=== PATIENT | female | born 1960 | race Caucasian/White ===

== ENCOUNTER 2019-11-28 06:00 | Outpatient (RCR) | payer BC, SELFPAY | END 2019-12-26 23:59 | disposition home or self-care (01) | LOC: MPT 06:00 | PROVIDERS: Family Provider Family Medicine; PCP Family Medicine; Referring Provider Licensed Practical Nurse; Visit Provider Licensed Practical Nurse | DX: M51.17 Intervertebral disc disorders with radiculopathy, lumbosacral region (principal) | CPT/HCPCS: 97110; 97161; 97530 ==

== ENCOUNTER → 2019-12-31 14:31 | Outpatient (BNVA) | payer BC, SELFPAY | PROVIDERS: Family Provider Family Medicine; PCP Family Medicine; Referring Provider Licensed Practical Nurse; Visit Provider Anesthesiology Pain Medicine | DX: M54.16 Radiculopathy, lumbar region (principal); M51.36 Other intervertebral disc degeneration, lumbar region; M47.816 Spondylosis without myelopathy or radiculopathy, lumbar region; M48.062 Spinal stenosis, lumbar region with neurogenic claudication; M43.16 Spondylolisthesis, lumbar region; M54.12 Radiculopathy, cervical region; M47.812 Spondylosis without myelopathy or radiculopathy, cervical region; M50.00 Cervical disc disorder with myelopathy, unspecified cervical region; Z79.891 Long term (current) use of opiate analgesic | CPT/HCPCS: 99204; 99999 ==

== ENCOUNTER 2020-01-08 16:13 | Outpatient (CLI) | payer OTHER, BC, SELFPAY ==
--- NOTE | 2020-01-08 16:45 | MR_ITS ---
WS: [id number] MRI CERVICAL SPINE NONCONTRAST TECHNIQUE: Sagittal T1, T2 and STIR imaging. Axial T2, gradient, and fiesta imaging. CLINICAL INFORMATION: radiculopathy COMPARISON: None. FINDINGS: Straightening of the normal cervical lordosis. Mild disc bulging mid cervical spine. Slight anterolis thesis C3 on C4. Disc bulging worse at C4-C5, C5-C6 and C6-C7. C2-C3: Mild left and no significant right foraminal narrowing. Mild left facet arthropathy. Spinal ca nal is patent. C3-C4: Slight anterolisthesis C3 on C4. Disc osteophyte complex with slight effacement of ventral the nicole sac. Moderate to severe left and no significant right foraminal narrowing. Moderate left facet ar thropathy. C4-C5: Slight anterolisthesis C4 on C5. Disc osteophytic ridging. Mild left and no significant right foraminal narrowing. Moderate left facet arthropathy. C5-C6: Disc osteophyte complex with endplate ridging. Mild left and no significant right foraminal na rrowing. Mild to moderate facet arthropathy with a small right facet effusion likely inflammatory. Sp inal canal is patent. C6-C7: Central disc osteophyte protrusion with mild central canal stenosis. Mild left and no signific ant right foraminal narrowing. Spinal canal is patent. Mild facet arthropathy. C7-T1: Mild left and no significant right foraminal narrowing. Mild facet arthropathy. Spinal canal i s patent. Small central disc protrusion upper thoracic spine at T3-4. MR/MR cervical spin wo con* [id number] IMPRESSION: 1. Straightening of the normal cervical lordosis. Slight anterolisthesis C3 on C4. Disc bulging worse in the mid cervical spine at C4-C6. 2. Small central disc osteophyte protrusion C6-C7 with mild central canal sten osis. 3. Disc osteophyte complex C4-C5 and C5-C6 with slight effacement of ventral t hecal sac. 4. Moderate to severe left bony foraminal narrowing C3-4 with advanced left fa cet arthropathy. 5. Otherwise mild to moderate bony foraminal narrowing worse at left C4-C5, le ft C5-C6,left C6-C7, and left C7-T1. 6. Moderate to advanced facet arthropathy worse at left C3-C4, C4-C5, 7. Mild to moderate facet arthropathy right C5-C6 with small facet effusion li arnel inflammatory
== END 2020-01-08 16:14 | disposition home or self-care (01) ==
LOC: RADSHAW 16:15
PROVIDERS: Family Provider Family Medicine; PCP Family Medicine; Visit Provider Anesthesiology Pain Medicine
DX: M51.17 Intervertebral disc disorders with radiculopathy, lumbosacral region (principal); M50.223 Other cervical disc displacement at C6-C7 level; M48.02 Spinal stenosis, cervical region
CPT/HCPCS: 72141

== ENCOUNTER → 2020-02-02 11:27 | Outpatient (BNVA) | payer OTHER, BC, SELFPAY | PROVIDERS: Family Provider Family Medicine; PCP Family Medicine; Referring Provider Licensed Practical Nurse; Visit Provider Psychiatry & Neurology Neurology | DX: M54.17 Radiculopathy, lumbosacral region (principal); Z87.891 Personal history of nicotine dependence | CPT/HCPCS: 95886; 95909 ==

== ENCOUNTER 2020-02-02 13:09 | Outpatient (CLI) | payer BC, SELFPAY ==
--- NOTE | 2020-02-02 13:26 | XR_ITS ---
WS: [id number] CERVICAL SPINE FLEXION EXTENSION TECHNIQUE: 3 views of the cervical spine: lateral neutral, flexion and extension views. CLINICAL INFORMATION: neck pain COMPARISON: None. FINDINGS: Straightening of the normal cervical lordosis. Slight anterolisthesis C3 on C4 and C4 on C5 measuring 1 mm at C3-C4 and 1.8 mm at C4-C5. Grade 1 anterolisthesis C7 on T1 measuring 2.9 mm. Normal prevert ebral soft tissues. Normal C1-2 articulation. Mild flexion instability at C3-C4 and C4-C5 measuring 3 mm at C3-C4 and 3.2 mm at C4-C5. This decreas es on extension. Posterior elements are normal. No other significant findings. XR/XR cervical spine fl/ex [id number] IMPRESSION: 1. Mild flexion instability at C3-C4 and C4-C5 described above. 2. Grade 1 anterolisthesis C7 on T1 measuring 2.9 mm in neutral without signif icant instability.
== END 2020-02-02 13:10 | disposition home or self-care (01) ==
PROVIDERS: Family Provider Family Medicine; PCP Family Medicine; Visit Provider Emergency Medicine
DX: M54.2 Cervicalgia (principal); M54.12 Radiculopathy, cervical region
CPT/HCPCS: 72040

== ENCOUNTER 2020-02-02 13:51 | Outpatient (CLI) | payer BC, SELFPAY ==
--- NOTE | 2020-02-02 14:52 | XR_ITS ---
WS: [id number] LATERAL LUMBAR SPINE: 3 view. Lateral radiographs are performed in upright neutral, flexion and extension to the patient's toleranc e. HISTORY: Low back pain COMPARISON: None available. L4 anterolisthesis by 12 mm on neutral imaging. Anterolisthesis of 11 mm on flexion and 8.4 mm on ext ension. Moderate disc space narrowing at L5-S1. No fractures. XR/XR lumbar spine f/e only [id number] IMPRESSION: L4 anterolisthesis by 12 mm with mild flexion/extension instability. Moderate degenerative disc disease at L5-S1.
== END 2020-02-02 13:52 | disposition home or self-care (01) ==
LOC: RADWPI 14:00
PROVIDERS: Family Provider Family Medicine; PCP Family Medicine; Visit Provider Licensed Practical Nurse
DX: M54.5 Low back pain (principal); M51.37 Other intervertebral disc degeneration, lumbosacral region
CPT/HCPCS: 72120

== ENCOUNTER → 2020-02-11 09:34 | Outpatient (BNVA) | payer OTHER, BC, SELFPAY | PROVIDERS: Family Provider Family Medicine; PCP Family Medicine; Visit Provider Anesthesiology Pain Medicine | DX: N76.0 Acute vaginitis (principal); Z12.72 Encounter for screening for malignant neoplasm of vagina; N76.4 Abscess of vulva | CPT/HCPCS: 80053; 87070; 87077; 87086; 87186; 88175; 99214 ==

== ENCOUNTER 2020-02-25 06:00 | Outpatient (RCR) | payer OTHER, BC, SELFPAY | END 2020-02-25 23:59 | disposition home or self-care (01) | LOC: MPT 06:00 | PROVIDERS: Family Provider Family Medicine; PCP Family Medicine; Referring Provider Anesthesiology Pain Medicine; Visit Provider Anesthesiology Pain Medicine | DX: M48.062 Spinal stenosis, lumbar region with neurogenic claudication (principal); M51.36 Other intervertebral disc degeneration, lumbar region; M54.16 Radiculopathy, lumbar region | CPT/HCPCS: 97110; 97162 ==

== ENCOUNTER 2020-02-26 06:00 | Outpatient (RCR) | payer OTHER, BC, SELFPAY | END 2020-03-27 23:59 | disposition home or self-care (01) | LOC: MPT 06:00 | PROVIDERS: Family Provider Family Medicine; PCP Family Medicine; Referring Provider Anesthesiology Pain Medicine; Visit Provider Anesthesiology Pain Medicine | DX: M48.062 Spinal stenosis, lumbar region with neurogenic claudication (principal); M51.36 Other intervertebral disc degeneration, lumbar region; M54.16 Radiculopathy, lumbar region | CPT/HCPCS: 97110; 97116; 97140 ==

== ENCOUNTER → 2020-03-11 09:32 | Outpatient (BNVA) | payer OTHER, BC, SELFPAY | PROVIDERS: Family Provider Family Medicine; PCP Family Medicine; Visit Provider Anesthesiology Pain Medicine | DX: M54.16 Radiculopathy, lumbar region (principal); M48.062 Spinal stenosis, lumbar region with neurogenic claudication; M47.816 Spondylosis without myelopathy or radiculopathy, lumbar region; M51.36 Other intervertebral disc degeneration, lumbar region; M54.12 Radiculopathy, cervical region; M50.00 Cervical disc disorder with myelopathy, unspecified cervical region; M47.812 Spondylosis without myelopathy or radiculopathy, cervical region; Z79.891 Long term (current) use of opiate analgesic | CPT/HCPCS: 64483; 64484; 99213; J1040; J2001; J3490 ==

== ENCOUNTER → 2020-03-25 10:34 | Outpatient (BNVA) | payer OTHER, BC, SELFPAY | PROVIDERS: Family Provider Family Medicine; PCP Family Medicine; Visit Provider Anesthesiology Pain Medicine | DX: M54.41 Lumbago with sciatica, right side (principal); M54.42 Lumbago with sciatica, left side; M54.16 Radiculopathy, lumbar region; M48.062 Spinal stenosis, lumbar region with neurogenic claudication; M47.816 Spondylosis without myelopathy or radiculopathy, lumbar region; M51.36 Other intervertebral disc degeneration, lumbar region; M54.12 Radiculopathy, cervical region; M47.812 Spondylosis without myelopathy or radiculopathy, cervical region; M50.00 Cervical disc disorder with myelopathy, unspecified cervical region | CPT/HCPCS: 99213 ==

== ENCOUNTER 2020-03-28 06:00 | Outpatient (RCR) | payer OTHER, BC, SELFPAY | END 2020-04-26 23:59 | disposition home or self-care (01) | LOC: MPT 06:00 | PROVIDERS: PCP Family Medicine; Visit Provider Anesthesiology Pain Medicine | DX: M48.062 Spinal stenosis, lumbar region with neurogenic claudication (principal); M51.36 Other intervertebral disc degeneration, lumbar region; M54.16 Radiculopathy, lumbar region | CPT/HCPCS: 97110; 97140 ==

== ENCOUNTER → 2020-04-08 14:05 | Outpatient (BNVA) | payer OTHER, BC, SELFPAY | PROVIDERS: PCP Family Medicine; Visit Provider Anesthesiology Pain Medicine | DX: M54.16 Radiculopathy, lumbar region (principal); M48.062 Spinal stenosis, lumbar region with neurogenic claudication; M47.816 Spondylosis without myelopathy or radiculopathy, lumbar region | CPT/HCPCS: 64483; 64484; J1040; J2001; J3490 ==

== ENCOUNTER → 2020-04-11 18:00 | Outpatient (BNVA) | payer OTHER, BC, SELFPAY | PROVIDERS: PCP Family Medicine; Visit Provider Family Medicine | DX: I10 Essential (primary) hypertension (principal); Z83.3 Family history of diabetes mellitus; F32.9 Major depressive disorder, single episode, unspecified; F41.1 Generalized anxiety disorder; M51.36 Other intervertebral disc degeneration, lumbar region | CPT/HCPCS: 80053; 80061; 83036 ==

== ENCOUNTER → 2020-05-24 10:39 | Outpatient (BNVA) | payer OTHER, BC, SELFPAY | PROVIDERS: PCP Family Medicine; Visit Provider Anesthesiology Pain Medicine | DX: M54.16 Radiculopathy, lumbar region (principal); M47.816 Spondylosis without myelopathy or radiculopathy, lumbar region; M51.36 Other intervertebral disc degeneration, lumbar region; M54.12 Radiculopathy, cervical region; M50.00 Cervical disc disorder with myelopathy, unspecified cervical region; M47.812 Spondylosis without myelopathy or radiculopathy, cervical region; M48.062 Spinal stenosis, lumbar region with neurogenic claudication | CPT/HCPCS: 99213 ==

== ENCOUNTER → 2020-06-21 10:33 | Outpatient (BNVA) | payer OTHER, BC, SELFPAY | PROVIDERS: PCP Family Medicine; Visit Provider Anesthesiology Pain Medicine | DX: M51.36 Other intervertebral disc degeneration, lumbar region (principal); M48.062 Spinal stenosis, lumbar region with neurogenic claudication; M54.16 Radiculopathy, lumbar region; M47.816 Spondylosis without myelopathy or radiculopathy, lumbar region; M54.12 Radiculopathy, cervical region; M50.00 Cervical disc disorder with myelopathy, unspecified cervical region; M47.812 Spondylosis without myelopathy or radiculopathy, cervical region | CPT/HCPCS: 99213 ==

== ENCOUNTER → 2020-08-23 10:27 | Outpatient (BNVA) | payer OTHER, BC, SELFPAY | PROVIDERS: PCP Family Medicine; Visit Provider Anesthesiology Pain Medicine | DX: M48.062 Spinal stenosis, lumbar region with neurogenic claudication (principal); M54.16 Radiculopathy, lumbar region; M47.816 Spondylosis without myelopathy or radiculopathy, lumbar region; M51.36 Other intervertebral disc degeneration, lumbar region; M54.12 Radiculopathy, cervical region; M50.00 Cervical disc disorder with myelopathy, unspecified cervical region; M47.812 Spondylosis without myelopathy or radiculopathy, cervical region | CPT/HCPCS: 99214 ==

== ENCOUNTER → 2020-09-13 10:37 | Outpatient (BNVA) | payer OTHER, BC, SELFPAY | PROVIDERS: PCP Family Medicine; Visit Provider Nurse Practitioner Family | DX: Z11.59 Encounter for screening for other viral diseases (principal); J04.0 Acute laryngitis; R68.89 Other general symptoms and signs | CPT/HCPCS: 87635 ==

== ENCOUNTER → 2020-10-03 13:17 | Outpatient (BNVA) | payer OTHER, BC, SELFPAY | PROVIDERS: PCP Family Medicine; Visit Provider Anesthesiology Pain Medicine | DX: M54.16 Radiculopathy, lumbar region (principal); M48.062 Spinal stenosis, lumbar region with neurogenic claudication | CPT/HCPCS: 64483; 64484; J1100; J3490 ==

== ENCOUNTER → 2020-11-02 10:14 | Outpatient (BNVA) | payer OTHER, BC, SELFPAY | PROVIDERS: PCP Family Medicine; Visit Provider Anesthesiology Pain Medicine | DX: G89.29 Other chronic pain (principal); M48.062 Spinal stenosis, lumbar region with neurogenic claudication; M54.16 Radiculopathy, lumbar region; M47.816 Spondylosis without myelopathy or radiculopathy, lumbar region; M51.36 Other intervertebral disc degeneration, lumbar region; M54.12 Radiculopathy, cervical region; M50.00 Cervical disc disorder with myelopathy, unspecified cervical region; M47.812 Spondylosis without myelopathy or radiculopathy, cervical region | CPT/HCPCS: 99214 ==

== ENCOUNTER → 2021-01-08 10:36 | Outpatient (BNVA) | payer OTHER, BC, SELFPAY | PROVIDERS: PCP Family Medicine; Visit Provider Emergency Medicine | DX: R55 Syncope and collapse (principal); I10 Essential (primary) hypertension; E66.9 Obesity, unspecified; R79.81 Abnormal blood-gas level; R06.02 Shortness of breath; Z68.35 Body mass index [BMI] 35.0-35.9, adult; J02.9 Acute pharyngitis, unspecified | CPT/HCPCS: 71046; 80053; 80061; 82652; 83036; 83880; 84443; 85025 ==

== ENCOUNTER → 2021-04-24 09:00 | Outpatient (BNVA) | payer OTHER, BC, SELFPAY | PROVIDERS: PCP Family Medicine; Referring Provider Orthopaedic Surgery; Visit Provider Orthopaedic Surgery | DX: Z01.818 Encounter for other preprocedural examination (principal); Z20.822 Contact with and (suspected) exposure to COVID-19 | CPT/HCPCS: 87635 ==

== ENCOUNTER 2021-04-26 14:58 | Inpatient (IN) | payer OTHER, BC, SELFPAY ==
--- NOTE | 2021-04-21 07:47 | ECG_ITS ---
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 Measurements Intervals [place] Rate: 72 P: 53 NC: 161 QRS: 34 QRSD: 94 T: 44 QT: 359 QTc: 394 Interpretive Statements SINUS RHYTHM LOW QRS VOLTAGE IN PRECORDIAL LEADS [QRS DEFLECTION < 1.0 mV IN CHEST LEADS] No previous ECG available for comparison Electronically Signed On 04-21-2021 14:24:14 CDT by Brenda Machado M.D. [id number]
[2021-04-21 08:30] VITALS: BMI 33.6
[2021-04-21 08:49] LABS: Basophils # 0.1 10^3/uL (0.0-0.1); Basophils % 0.6 %; Eosinophils # 0.1 10^3/uL (0.0-0.8); Eosinophils % 1.2 %; Hematocrit 39.5 % (37.0-47.0); Hemoglobin 12.6 g/dL (11.5-15.3); Lymphocytes # 2.6 10^3/uL (0.8-4.8); Lymphocytes % 32.8 %; Mean Corpuscular HGB Conc 31.9 g/dL (30.0-36.0); Mean Corpuscular Hemoglobin 30.5 pg (28.0-34.0); Mean Corpuscular Volume 95.6 fL (81-99); Mean Platelet Volume 9.6 fL (7.4-10.4); Monocytes # 0.5 10^3/uL (0.2-0.9); Monocytes % 6.1 %; Neutrophils # 4.74 10^3/uL (1.8-7.7); Neutrophils % 59.1 %; Nucleated Red Blood Cells % 0 %; Platelet Count 276 10^3/cmm (130-400); Red Blood Count 4.13 10^6/uL (4.1-5.3); Red Cell Distribution Width 12.6 % (12.1-15.1)
--- NOTE | 2021-04-21 08:59 | ANES.PREANE2 ---
Pre-Anesthetic Assessment Pre-Anesthetic Assessment: Height/Weight: Height 1.7 m Weight 97.522 kg Proposed Procedure: Operation Date: 04/26/21 07:00 Proposed Procedures p PLIF L4/5 L5/S1 45786, 47977, 3030, 63199, 31321, 03817, 65497 m48.062 m43.16(Not Applicable) - Freddy Wilder, DO Was Beta Sean taken within 24 hours: N/A Was Clonidine taken within 24 hours: N/A Social: Social History: No alcohol and No tobacco Exam: Pre-Anes Outpt Exam: alert and oriented x 3 Airway: Submandibular: WNL Cervical ROM: WNL MP: 3 Pulmonary: Pulmonary: Cough and None reported Comments: lisinopril cough CV/HEM: CV/HEM: HTN Comments: neg stress test several years ago. cp due to anxiety : : None reported Hepatic: Hepatic: None reported GI: GI: PUD Metabolic: Metabolic: Morbid obesity Comments: pre diabetic Musc/skel: Musc/skel: Fibromyalgia, Lower Back Pain and OA/DJD (knee arthritis) Neuropsych: Neuropsych: Anxiety Anesthetic Plan: ASA status: 3 Anesthesia: Anesthesia Evaluation and General Risk of > 500 ml blood loss (7ml/kg in children): Yes, adequate IV access and fluids planned PFSH Anesthesia PFSH: Medical History Allergic rhinitis Depression ZORAIDA (generalized anxiety disorder) History of prediabetes Hypertension Intervertebral disc disorder with radiculopathy of lumbosacral region Labial cyst Lumbar stenosis with neurogenic claudication Mixed hyperlipidemia Obesity Spondylolisthesis of lumbar region Surgical History History of knee surgery (~1973) left knee for repair History of tonsillectomy Family History Father Bleeding ulcer Heart disease Sister Bleeding ulcer Grandfather Heart disease Social History Smoking and tobacco status: former smoker Alcohol intake: never 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
[2021-04-21 09:11] LABS: Anion Gap 14.6 (5-19); Blood Urea Nitrogen 18 mg/dL (6-20); Calcium 8.9 mg/dL (8.5-10.5); Carbon Dioxide 28 mmol/L (22-29); Chloride 98 mmol/L (98-107); Glomerular Filtration Rate 85.6 mL/min (90-130); Glucose 164 mg/dL (65-115); Osmolality Calculated 290 mOsm/kg (285-295); Potassium 3.6 mmol/L (3.5-5.1); Sodium 137 mmol/L (136-145)
[2021-04-26] VITALS (16 sets, daily range): BP systolic 105–149; BP diastolic 58–100; PULSE 81–110; RESP 14–19; TEMP 36.6–37; O2SAT 92–100
--- NOTE | 2021-04-26 | XR_ITS ---
WS: [id number] Lumbar spine, C-arm fluoroscopy in the OR, 04/26/2021 Clinical Data: plif L4/L5 L5/S1 Comparison: Lumbar spine, 02/02/2020. Findings: Dr. Wilder performed a posterior lumbar fusion at L4, L5 and S1. Artificial disks are placed at L4-L5 and L5-S1. XR/XR lumbar spine 2-3V* [id number] Impression: Posterior lumbar fusion at L4, L5 and S1.
--- NOTE | 2021-04-26 | SCC_ITS ---
Procedure Done: 1. L4/5 Interbody fusion with posterolateral fusion 2. L5/S1 Interbody fusion with Poserolateral fusion 3. Instrumentation L4-S1 4. Cage at L4/5 5. Cage at L5/S1 6. Laminectomy L4 7. Laminectomy L5 8. use of autograft from same incision 9. allograft 10. Bone marrow aspirate from right iliac crest 11. Use of computer navigation/stereotactic for spine 19 seconds of fluoroscopic guidance, for a cumulative dose of 48.1 mGy, was provided to Dr. Wilder by the radiology department. C-arm images of the lumbar spine were saved for the patient's permanent record. [facility]
[2021-04-26] MEDS: sodium chloride 0.9% 1,000 ML 30 ML IV (09:35)
--- NOTE | 2021-04-26 10:30 | P.ANESUD_ITS ---
Pre-Anesthetic Update Pre-Anesthetic Assessment: Date of Surgery/Procedure: 04/26/21 Proposed Procedure: Operation Date: 04/26/21 10:45 Proposed Procedures p PLIF L4/5 L5/S1 01221, 78706, 3030, 87130, 13406, 59964, 45551 m48.062 m4 3.16(Not Applicable) - Freddy Wilder, DO Any changes to Pre-Anesthetic Assessment?: No Last Intake: Intake Last Liquid Date 04/25/21 Last Liquid Time 20:00 Last Solid Date 04/25/21 Last Solid Time 20:00 Vitals: Temperature 98 F 04/26/21 09:22 Temperature Source Temporal Artery S can 04/26/21 09:22 Pulse Rate 83 04/26/21 09:22 Respiratory Rate 16 04/26/21 09:22 Blood Pressure 149/76 04/26/21 09:22 Blood Pressure Lakisha n 100 04/26/21 09:22 Pulse Oximetry 98 04/26/21 09:22 Oxygen Delivery Me thod 04/26/21 09:22 Exam: Pre-Anes Outpt Exam: alert, oriented x 3, clear to auscultation bilaterally and regular rate & rhythm Cardiac Studies: No Data to Display
--- NOTE | 2021-04-26 10:32 | P.HPUD_ITS ---
Surgery/Procedure H&P Update DATE OF PROCEDURE: April 26, 2021 DATE H&P PERFORMED: 04/26/21 PLANNED PROCEDURE: Operation Date: 04/26/21 10:45 Proposed Procedures p PLIF L4/5 L5/S1 58034, 04357, 3030, 95820, 54824, , m48.062 m43.16(Not Applicable) - Freddy Wilder DO
--- NOTE | 2021-04-26 10:32 | W.PM.OPSUD ---
Surgery/Procedure H&P Update DATE OF PROCEDURE: April 26, 2021 DATE H&P PERFORMED: 04/26/21 PLANNED PROCEDURE: Operation Date: 04/26/21 10:45 Proposed Procedures p PLIF L4/5 L5/S1 09614, 16680, 3030, 50178, 83212, , m48.062 m43.16(Not Applicable) - Freddy Wilder DO
--- NOTE | 2021-04-26 10:33 | PM.HP ---
Providers/Chief Complaint Primary Care Provider: Arlen Al MD Chief Complaint: PLIF L4/5 L5/S1 58288, 45220, 3030, 47287, 26211, History of Present Illness Grace Portillo is a 60 year old female 10 year old female patient here for evaluation of her low back and neck pain Onset: [gradually worsening] Duration: [24 years] Characteristics: [sharp, stabbing] Severity: [moderate] Location: [low back] Radiating symptoms: [bilateral posterior lower extremities] Aggravating factors: [standing, walking, sitting, lifting, bending] Alleviating factors: [nothing] Neuro deficits: numbness, tingling, & weakness both lower extremities, no incontinence of bowel/bladder, saddle anesthesia. Prior tx: [pain management, oral anti-inflammatories, injections at pain management, formal PT ] Review of Systems Narrative: General ROS: negative for weight changes, fever ENT ROS: negative for nasal congestion, drainage or bleeding, sore throat, dysphagia or ear pain Eyes: PERRL Hematological and Lymphatic ROS: negative for swollen glands or abnormal bleeding Endocrine ROS: negative for polyuria/polydpsia or new changes in weight Respiratory ROS: negative for cough, shortness of breath, or wheezing Cardiovascular ROS: negative for chest pain or dyspnea on exertion Gastrointestinal ROS: negative for reflux, abdominal pain, change in bowel habits, or black or bloody stools Musculoskeletal ROS: negative for back pain, neck pain, or joint pain or swelling except for current problem Neurological ROS: negative for TIA or stoke symptoms Skin: no rashes Medications/Allergies Home Medications Medication Instructions Recorded Confirmed Last Taken Type acetaminophen 650 mg 1,300 mg PO .every 3-4 hours PRN 05/24/20 04/26/21 04/26/21 History tablet,extended release tab gabapentin 300 mg capsule 300 mg PO TID 30 Days #90 cap 11/02/20 04/26/21 04/25/21 Rx duloxetine 30 mg capsule,delayed 30 mg PO BID 90 Days #180 cap 12/20/20 04/26/21 04/26/21 Rx release lisinopril 40 mg tablet 40 mg PO DAILY 90 Days #90 tab 12/20/20 04/21/21 04/21/21 Rx cyclobenzaprine 10 mg tablet 10 mg PO QDAY PRN 90 Days #90 tab 01/19/21 04/21/21 04/07/21 Rx fexofenadine 180 mg tablet 180 mg PO DAILY 01/19/21 04/26/21 04/25/21 History hydrochlorothiazide 25 mg tablet 25 mg PO QAM 90 Days #90 tab 01/19/21 04/26/21 04/26/21 Rx Allergies Allergy/AdvReac Type Severity Reaction Status Date / Time No Known Allergies Allergy Verified 04/26/21 09:14 PFSH Acute PFSH: Medical History Allergic rhinitis Depression ZORAIDA (generalized anxiety disorder) History of prediabetes Hypertension Intervertebral disc disorder with radiculopathy of lumbosacral region Labial cyst Lumbar stenosis with neurogenic claudication Mixed hyperlipidemia Obesity Spondylolisthesis of lumbar region Surgical History History of knee surgery (~1973) left knee for repair History of tonsillectomy Family History Father Bleeding ulcer Heart disease Sister Bleeding ulcer Grandfather Heart disease Social History Smoking and tobacco status: former smoker Alcohol intake: never 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 GENERAL: Patient in no acute distress. CARDIAC: Regular rate and rhythm. CHEST: Normal inspiratory effort, normal respiratory rate. ABDOMEN: Soft and nontender. SKIN: Clear, warm and intact. NEURO?PSYCH: The patient is alert and oriented to person, place and time. Sensorv /SILT Motor StrengthShoulder abduction C5 5/5Wrist extension C6 5/5Elbow extension C7 5/5Hand [employer] C8 5/5Finger abduction T15/5 Radial/ Ulnar/ Median n intact LowerSensory (SILT)Motor StrengthHin flexion L2/3Ant/inner thigh 5/5Hip adduction L2/3 5/5Knee extension L4 Lat thigh, 5/5Toe dorsiflexion L5 5/5Ankle dorsiflexion L5/ U72Rkdkxry flexion S1 5/5 DTRBleeps 2+Triceps 2+Brachioradialis 2+Patellar 2+Achilles 2+ MUSCULOSKELETAL: [] UPPEREXTREMITIES: The patient had full active ROM in fingers, wrist, elbow, and shoulder. The patient demonstrated ability to fully flex/extend/abduct/adduct fingers, make ok sign, cross 2nd/3rd digits, extend 1st digit fully.. Radial pulse 2+, CR<2 seconds. LOWER EXTREMITIES: Pt has full, active ROM of toes, ankle, knee, and hip. Dorsalis pedis/posterior tibialis pulses 2+, CR<2 seconds. SPINE: Skin warm, dry, intact. Data : 04/21/21 08:25 04/21/21 08:25 A&P Assessment and plan (1) Lumbar radiculopathy: L4/5 Spondylolisthesis Plan to do L4/5 and L5/S1 PLIF Status: Acute Attestations Medical Necessity Statement*: failed conservative tx Coding Level of Care Code Acute Thermal Spray Operator for Herson Henriquez Diagnoses Lumbar radiculopathy M54.16
[2021-04-26] MEDS: vancomycin 1,000 MG SDV 1000 MG XX (14:02)
--- NOTE | 2021-04-26 14:55 | P.OP_ITS ---
Operative Report Date of procedure: April 26, 2021 Pre-op Diagnosis: L4/5 Spondylolisthesis; Lumbar stenosis Post-op diagnosis: same Procedure Done: 1. L4/5 Interbody fusion with posterolateral fusion 2. L5/S1 Interbody fusion with Poserolateral fusion 3. Instrumentation L4-S1 4. Cage at L4/5 5. Cage at L5/S1 6. Laminectomy L4 7. Laminectomy L5 8. use of autograft from same incision 9. allograft 10. Bone marrow aspirate from right iliac crest 11. Use of computer navigation/stereotactic for spine Surgeon: Freddy Wilder Anesthesia: General Estimated blood loss (mL): 200 Condition: stable Disposition: PACU Procedure: 1. L4/5 Interbody fusion with posterolateral fusion 2. L5/S1 Interbody fusion with Poserolateral fusion 3. Instrumentation L4-S1 4. Cage at L4/5 5. Cage at L5/S1 6. Laminectomy L4 7. Laminectomy L5 8. use of autograft from same incision 9. allograft 10. Bone marrow aspirate from right iliac crest 11. Use of computer navigation/stereotactic for spine Patient is brought to the operative suite. After undergoing anesthesia, the patient had neuro monitoring attached. Patient was then placed in the prone position on the Demetrius table. All areas of impingement were well-padded. Patient was then prepped and draped in the normal sterile fashion. Skin incision was then made over the L4 to S1 . Subperiosteal dissection was made out to the transverse processes of L4 and L5 and sacral ala bilaterally. Attention was then brought to placing the fiducial for the computer navigation. 2 pins were placed into the iliac crest. And then the fiducial was attached. The C-arm was brought in and a circumferential spin was done and this inform ation was loaded into the computer in order to use navigation. The [employer] bone marrow aspirate kit was used to aspirate bone marrow aspirate. This was done by using the sharp probe to open up the bone right iliac crest. Aspiration was performed and then the blunt probe was then used to dissect down to through the bone tunnel. An aspirating well drawn back a millimeter approximately 20 cc of bone marrow aspirate was used. Admixed with the allograft and autograft bone that will be used. The technique for placing the pedicle screws was to use a drill followed by the gearshift probe that attaches to the computer navigation. Followed by the ball probe to feel the superior inferior medial lateral anderson of the pedicles. Then placement of the screws with the use of the computer navigation . This was done at each pedicle. Screws were placed at L4 bilaterally and L5 and S1 bilaterally. Next attention was brought to performing the laminectomy ofL4. This was done using the high-speed bur Kerrisons and curettes. Once the lamina was removed and then attention was brought to performing a partial facetectomy on the contralateral side. This was done again using the high-speed bur curettes and Kerrisons. The ligamentum flavum was taken down bilaterally from L4 to L5. Attention was then brought to the facet on the ipsilateral side. The facet was taken down. The L5 nerve was decompressed as it passed around the L5 pedicle. The laminectomy was done for purposes of decompressing the nerve as well as placement of the cage. The L4 nerve was identified as it traversed through the L4/5 foramen. The thecal sac was identified and retracted. The L4/5 disc base was identified. Using a knife the disc base was opened. And then sequential daniel were placed. The first shaver was a 6 and the last shaver was a 10. Using a pituitary and down going curette the endplates were scraped and disc material was removed from the space. Once adequate decompression of the disc base was felt to be had. Osteoamp sponge was packed into the anterior aspect of the disc base. Then a size 10 cage from [place] was placed after packing osteoamp into the cage. While placing the cage the thecal sac and L5 nerve was protected. C arm was used to ensure that the cages placed in the appropriate position. Next attention was brought to performing the laminectomy ofL5. This was done using the high-speed bur Kerrisons and curettes. Once the lamina was removed and then attention was brought to performing a partial facetectomy on the contralateral side. This was done again using the high-speed bur curettes and Kerrisons. The ligamentum flavum was taken down bilaterally from L5 to S1. Attention was then brought to the facet on the ipsilateral side. The facet was taken down. The S1 nerve was decompressed as it passed around the S1 pedicle. The laminectomy was done for purposes of decompressing the nerve as well as placement of the cage. The L5 nerve was identified as it traversed through the L5/S1 foramen. The thecal sac was identified and retracted. The L5/S1 disc base was identified. Using a knife the disc base was opened. And then sequential daniel were placed. The first shaver was a 6 and the last shaver was a 8. Using a pituitary and down going curette the endplates were scraped and disc material was removed from the space. Once adequate decompression of the disc base was felt to be had. Osteoamp sponge was packed into the anterior aspect of the disc base. Then a size 8 cage from [employer] was placed after packing osteoamp into the cage. While placing the cage the thecal sac and S1 nerve was protected. C arm was used to ensure that the cages placed in the appropriate position. Attention was then brought to attaching the rods to the screws placed in the L4 bilaterally L5 bilaterally and S1 bilaterally. Caps were torqued into position. Locking the construct in place. Wound was copiously irrigated and then attention was brought to decorticating the facets and transverse processes laterally. Bone that was taken down from the lamina was used along with osteoamp fibers and sponges were packed into the lateral gutters along the facet joints. This was done bilaterally. Wound was then closed in a layered fashion starting with the thoracolumbar fascia. 0-strata fix was used the sub cutaneous tissue was closed with 2-0 strata fix and skin with 3-0 nylon. Silverlon was then used to seal the skin and a steril dressing was applied. Patient was then placed in the supine position. The endotracheal tube was removed and patient was transferred to the PACU in stable condition.
[2021-04-26] MEDS: fentaNYL 50 mcg/mL INJ 2mL IVP (14:59)
--- NOTE | 2021-04-26 15:16 | SUR.PHASEI ---
PT AWAKE ALERT TALKATIVE, TAKING ICE CHIPS PT HAS PAIN TO LOWER BACK AT 2-3 BETTER NOW SEE EARLIER PAIN MED GIVEN DR STERLING AT BEDSIDE TALKING WITH PT., PT MOVES ALL EXTREMITIES STRONGLY TO COMMAND, VSS PT ON 3LNC VSS. ABD BINDER IN PLACE DRESSING D/I
[2021-04-26] MEDS: ketorolac 30 mg/mL INJ IVP (15:45)
[2021-04-26] MEDS: HYDROcodone-acetaminophen 5-325 mg Tablet PO ×2 (15:50→20:54)
--- NOTE | 2021-04-26 15:56 | ANE.PACU2 ---
Inpatient post-anesthesia follow up: Airway intact: Yes Vital signs: Temperature 98.2 F Pulse Rate 92 Respiratory Rate 18 Blood Pressure 132/78 Pulse Oximetry 96 Oxygen Delivery Me thod Room Air Oxygen Flow Rate 3 Fraction of Inspir ed Oxygen Hydration adequate: Yes Nausea and vomiting: No Pain level: 2 Mental status: Baseline
[2021-04-26] MEDS: lactated ringers 1,000 ML 90 ML IV (16:03)
[2021-04-26] MEDS: gabapentin 300 mg Capsule PO ×2 (16:03→20:54)
[2021-04-26] MEDS: docusate sodium 100 mg Capsule PO (17:53)
[2021-04-26] MEDS: duloxetine 30 mg Capsule PO (17:53)
[2021-04-26] MEDS: acetaminophen 325 mg Tablet 650 MG PO (18:47)
[2021-04-27] MEDS: lactated ringers 1,000 ML 90 ML IV (03:44)
[2021-04-27] MEDS: acetaminophen 325 mg Tablet 650 MG PO (03:52)
[2021-04-27 04:10] VITALS: BP 108/71; PULSE 79; RESP 18; TEMP 36.6; O2SAT 94
[2021-04-27] MEDS: enoxaparin 40 mg/0.4 mL Syringe SUBCUT (05:14)
[2021-04-27] MEDS: hydroCHLOROthiazide 25 mg Tablet PO (05:17)
[2021-04-27] MEDS: HYDROcodone-acetaminophen 5-325 mg Tablet PO ×3 (05:18→13:50)
[2021-04-27 07:39] VITALS: BP 120/76; PULSE 84; RESP 16; TEMP 36.8; O2SAT 92
--- NOTE | 2021-04-27 08:29 | P.DS_ITS ---
Discharge Providers Date of Admission: 04/26/21 14:58 Date of Discharge: April 27, 2021 Attending Provider at Admission: Freddy Wilder DO Attending Provider at Discharge: Freddy Wilder DO Primary Care Provider: Arlen Al MD Diagnoses at Discharge Discharge Diagnosis (1) Lumbar radiculopathy: Status: Acute Permanent problem details: Multilevel mild spondylosis throughout the cervical and thoracic spines. At T6-7 there is a very tiny central disc protrusion without contact on the cord. Signal within the cord is normal. Benign hemangiomas at T11, L1 and L3. L2 retrolisthesis by 3.7 mm and L3 retrolisthesis by 3.0 mm. L5 retrolisthesis by 4.7 mm. Mild disc desiccation throughout the lumbar spine most significant at L5-S1. Conus terminates normally at mid L1. Nerve roots are becoming clumped and indistinct in the thecal sac at the L4-5 level. This is the area of the most significant stenosis. L1-L2: Normal. L2-L3: Mild annular disc bulging and facet arthropathy. Small amount of fluid in the facet joints. Very mild narrowing of the subarticular recesses. L3-L4: Mild ligamentum flavum hypertrophy and facet arthropathy. Fluid in the facet joints bilaterally. No focal disc herniation or significant stenosis. Minimal narrowing of the subarticular recesses. L4-L5: Mild annular disc bulging and facet joint arthropathy. Increase fluid in the facet joints. LEFT facet joint is widened measuring up to 3.4 mm. Mild central stenosis with moderate to severe bilateral subarticular recess stenosis. Foramen are patent. Facet joint cyst on the RIGHT measures 6 mm and extends posterior. L5-S1: Retrolisthesis of the L5 vertebral body mild encroachment upon the ventral thecal sac. Mild annular disc bulging and circumferential osteophytic ridging around the vertebral bodies. Ligamentum flavum hypertrophy and facet joint arthropathy. Mild narrowing of the central canal with moderate bilateral subarticular recess stenosis and moderate LEFT foraminal stenosis. Mild RIGHT foraminal stenosis. 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 Impression: 1. Moderate to severe bilateral subarticular recess stenosis at L4-5. Increase fluid in the facet joints at L4-5 with facet joint arthropathy. 2. Mild central stenosis at L4-5. With clumping and indistinctness of the nerve roots. 3. Moderate LEFT foraminal stenosis with moderate bilateral subarticular recess stenosis at L5-S1. 4. Moderate degenerative disc disease at L5-S1. 5. Slight retrolisthesis of L2, L3 and L5. NCS: Neurophysiology report History: Back pain radiating down both legs. Query lumbosacral radiculopathy or neuropathy. Summary of findings: 1. The bilateral peroneal and left tibial motor NCS showed normal or slightly prolonged distal latencies with small CMAP amplitudes and normal conduction velocities. The right tibial motor NCS showed normal distal latency, conduction velocity, and CMAP amplitudes. 2. The bilateral sural antidromic sensory NCSs showed normal onset latencies and SNAP amplitudes without [id number] asymmetry. 3. Needle electromyography of the right tibialis anterior and vastus medialis was normal. EMG of the right medial gastrocnemius,, biceps femoris long head and L5 paraspinal, showed fibs and PSWs with broad motor unit potential configuration and recruitment patterns. EMG of the left tibialis anterior, medial gastrocnemius,and, semimembranosus, showed fibs and PSWS with broad MUPs. EMG of the left vastus medialis and L5 paraspinal showed no abnormal spontaneous activity with normal motor unit potential configuration and recruitment patterns. Interpretation: The study provides electrodiagnostic evidence for bilateral active L5S1 radiculopathy. This conclusion is based on active denervation in this myotome with small CMAPs and preserved SNAPS. Reason for Visit Reason for Visit: PLIF L4/5 L5/S1 21252, 55618, 3030, 15268, 44454, Hospital Course Hospital Course Patient was admitted on 04/26/2021. Patient had a L4-5 L5-S1 posterior lumbar interbody fusion done. Her course was uncomplicated she was discharged on April 27, 2021. Physical Exam Narrative: EXAM NARRATIVE: Patient doing well no complaints pain is sniffily improved. Been up with physical therapy. Urinary Catheter Management^: Sylvester: Cath Placed During This Visit: yes Urinary Catheter Date of Insertion: 04/26/21 Urinary Catheter Time of Insertion: 11:15 Discharge Data Data Completed and Pending: Completed Studies During Hospitalization Category Date Time Status XR lumbar spine 2 -3V* [id number] Routine Exams 04/26/21 Completed Pending at discharge Category Date Time Status C-arm Fluoroscopy [id number] Routine Exams 04/26/21 08:59 Ordered Vitals: Last Vital Signs Temp 98.3 F 04/27/21 07:39 Pulse 84 04/27/21 07:39 Resp 16 04/27/21 07:39 BP 120/76 04/27/21 07:39 Pulse Ox 92 04/27/21 07:39 Discharge Plan Discharge Patient Disposition: Home Condition: Stable Prescriptions: New hydrocodone-acetaminophen 5-325 mg tablet 1 - 2 tab PO .Q4-6H Qty: 40 RF: 0 Continued gabapentin 300 mg capsule 300 mg PO TID 30 Days Qty: 90 RF: 0 duloxetine 30 mg capsule,delayed release(DR/EC) 30 mg PO BID 90 Days Qty: 180 RF: 1 lisinopril 40 mg tablet 40 mg PO DAILY 90 Days Qty: 90 RF: 1 fexofenadine [Mariel Allergy] 180 mg tablet 180 mg PO DAILY RF: 0 hydrochlorothiazide 25 mg tablet 25 mg PO QAM 90 Days Qty: 90 RF: 1 cyclobenzaprine 10 mg tablet 10 mg PO QDAY PRN (Reason: muscle spasm) 90 Days Qty: 90 RF: 1 acetaminophen [Tylenol 8 Hour] 650 mg tablet extended release 1,300 mg PO .every 3-4 hours PRN (Reason: pain) RF: 0 (DME) Bone Growth Stimulator E0748 See Rx Instructions .Route .MEDSUPPLY Qty: 1 RF: 0 Discharge Orders: Discharge Order (Routine); Ordered 04/27/21 Ordered By: Freddy Wilder Discharge Diet: Advance as tolerated Discharge Activity: Limit activity as instructed Patient Instructions: Opioid Safety Activity Restrictions/Additional Instructions: Thank you for [facility] for your care! The following is a list of instructions, from your provider, to follow upon your discharge to ensure you have the optimal recovery from your recent injury orsurgery. Follow-up care is a buitrago part of your treatment and safety. Be sure to make and go to all appointments, and call your doctor if you are having problems. If you do not already have a follow-up appointment made, call Dr. Wilder office in the next 1-3 days to make follow up appointment for 1 weeks at [phone]. It is also a good idea to know your test results and keep a list of the medicines you take. Medications will be prescribed for you at your provider's discretion. These medications are to be used as instructed; if they are taken more often that prescribed they will not be refilled early and in most cases will not be refilled at all. > When a refill is needed,you should contact vishnu atkins 2-3 business days before your prescription runs out. Medications will NOT be refilled by staff consultant providers after hours! > Many pain medications contain Tylenol (Acetaminophen). Do not consume more than 4,000 mg of Tylenol per day in total with any combination ofmedications. > Pain medications can cause constipation. Please use an over the counter stool softener as directed, while taking pain medications. Consulty our local pharmacist with questions or recommendations on stool softeners. If constipation persists, contact our office or your primary care provider. > While under our care,you are not to receive pain medications or other controlled substances from any other provider unless our office is notified and approves. Any attempts to do so will result in refusal to prescribe any further pain medications and possible dismissal from our practice. ? ? Showering is permitted, however we ask that you do not take a bath, sit in a whirlpool / Jacuzzi, or go swimming for 1 month. For only the first 2 days after surgery, lt wilt be necessary for you to cover your wound/dressing with plastic and tape to keep it dry. ? Walking is essential for the healing process after surgery. We would like you to slowly advance your walking. This should be done on relatively flat clear ground (inside or out) or can be done on a treadmill. Remember this goal does not have to happen all at once, slowly increase your distance and duration. This can be broken into more more than one walk per day as tolerated. Patients who walk as directed after surgery rarely require Physical Therapy. In the unlikely event this issue arises your provider will direct hospital staff to make the appropriate arrangements. ? No lifting over 5 pounds {a gallon of milk) or bending/twisting until further notice. Each of these activities places an unnecessary amount of stress onto the body and can impede the delicate healing process. > Instead of bending at the waist, keep your back straight and bend at the knees. > Instead of twisting your torso, keep your back straight and turn your entire body with your feet. ? You may sleep in any position which makes you comfortable. Many patients find comfort sleeping in a reclining chair. It is not abnormal to have difficulty sleeping for the first several weeks following your surgery. We recommend trying Benadry! or Tylenol PM as directed to help with your sleeping difficulties. Both medications are over the counter and available withoutprescription. ? NO SMOKING!!! Smoking dramatically increases the probability of developing postoperative wound infections. ? Common complaints after lumbar and/or thoracic spine surgery include, but are not limited to: numbness and/or tingling in the legs, pain around the incision and surrounding tissues, muscle spasms, or stiffness of the middle to low back. Contact our office if these symptoms persist or if an acute change occurs. ? No driving for the first 3-5days, and not while taking narcotics [] until seen at your follow-up appointment and cleared. There are no restrictions for riding on short trips, however if you take a longer trip, arrangements should be made to make regular stops to get out of the vehicle and stretch . ? Swelling is an unfortunate event that will take place with any surgery and is the primary source of your postoperative discomfort. While walking and regular approved activities helps control inflammation, there are additional steps you can take to minimizeswelling. > Place ice over the surgical site and surrounding tissue for twenty minutes, followed by applying a low/medium heat (heating pad) for an additional twenty minutes every 1-2 hours as needed for painrelief. > You may use of over the counter anti-inflammatory medications (Ibuprofen, Motrin, Aleve, Advil, etc) as directed on the package label. These types of medicines wm significantly reduce the amount of discomfort you experience after surgery from swelling. It should be noted that if you have and allergy to any of these medications, or a history of ulcers or kidney disease you should consult you primary care provider prior to starting these medications. Discharge Attestations Time Spent in Discharge Care*: less than 30 min Quality Metrics Clinical Quality Measures During this hospital stay, did patient experience: None Coding Level of Care Code Acute Herson DUQUE DC note Diagnoses Lumbar radiculopathy M54.16
[2021-04-27] MEDS: duloxetine 30 mg Capsule PO (09:50)
[2021-04-27] MEDS: lisinopril 20 mg Tablet 40 MG PO (09:50)
[2021-04-27] MEDS: gabapentin 300 mg Capsule PO (09:50)
[2021-04-27] MEDS: docusate sodium 100 mg Capsule PO (09:50)
[2021-04-27] MEDS: fexofenadine 60 mg Tablet 180 MG PO (09:53)
--- NOTE | 2021-04-27 11:25 | PC.CHAP ---
Pastoral Care Encounter/Spiritual Assessment Type of Contact [] Declined toxics program officer visit [] Patient/Family/Request visit [] Outpatient visit [] Follow-up visit [] Physician referral [] Code/Alert [x] Routine visit [] Staff referral [] Actively dying [] Patient sleeping [] Family support [] [] Out of room [] Palliative care [] [x] Receiving care in room [] Pre-surgical visit [] Trauma [] Long length of stay [] ICU visit [] Other: Relational/Emotional Strength [x] Patient feels connected with others/family/visitors/staff [] Distress [] Loneliness/isolation [] Abandonment Spirituality of Patient [] Person of Ebony [] Attends Faith of their Ebony [] Believes in Prayer [] Reads Bible or Orthodoxy materials [] There are Spiritual issues to be addressed Configuration Management Consultant Interventions [] Prayer [] Active listening [] Non-anxious presence [] Spiritual/emotional support [] Crisis/trauma care [] Spiritual counseling [] Bereavement support [] Provided bereavement packet [] Provided Bible/devotional materials [] Provided toy/stuffed animal, coloring book to patient or family member [] Provided Communion [] Anointing/[place] [] Salvation [] Completed spiritual assessment [] Other: Impact on Illness or Injury [] Angry [] Fearful [] Anxious [] Often cries [] Exhaustion [] Unable to work [] Unable to attend tenriism [] Unable to walk/stand [] Unable to read [] Unable to drive [] Unable to eat/drink [] Unable to sleep [] Unable to be with family [] Patient intubated [] Other: Summary she is feeling good tests are OK witing to go home soon +1 friend Time spent with patient 10 mins
[2021-04-27 12:06] VITALS: BP 109/69; PULSE 92; RESP 16; TEMP 36.8; O2SAT 90
--- NOTE | 2021-04-27 12:06 | PC.NURSE ---
Hemovac removed hemovac per Dr Wilder order. Pt tolerated it well. Incision covered with 4x4 guaze and covaderm.
[2021-04-27 14:30] VITALS: BP 109/69; PULSE 92; RESP 16; TEMP 36.8; O2SAT 90
== END 2021-04-27 14:30 | disposition home or self-care (01) | DRG 460 ==
LOC: MEDSURG 15:01
PROVIDERS: Admitting Provider Orthopaedic Surgery; PCP Family Medicine; Visit Provider Orthopaedic Surgery
PROC: 0SG10AJ Fusion of 2 or more Lumbar Vertebral Joints with Interbody Fusion Device, Posterior Approach, Anterior Column, Open Approach (ICD-10-PCS; CPT 22612; principal; 2021-04-26 10:45)
DX: M54.16 Radiculopathy, lumbar region (principal); F32.9 Major depressive disorder, single episode, unspecified; F41.1 Generalized anxiety disorder; I10 Essential (primary) hypertension; E78.2 Mixed hyperlipidemia; E66.9 Obesity, unspecified; Z68.33 Body mass index [BMI] 33.0-33.9, adult; Z87.891 Personal history of nicotine dependence; M47.812 Spondylosis without myelopathy or radiculopathy, cervical region; M47.814 Spondylosis without myelopathy or radiculopathy, thoracic region; M51.24 Other intervertebral disc displacement, thoracic region; M51.26 Other intervertebral disc displacement, lumbar region
CPT/HCPCS: 36415; 51702; 72100; 76000; 80048; 85025; 93005; 96372; 97161; 97530; C1713; C9359; J0330; J0690; J1100; J1650; J1885; J2704; J3010; J3370; J3490; J7030

== ENCOUNTER 2021-05-19 13:11 | Outpatient (CLI) | payer OTHER, BC, SELFPAY | END 2021-05-19 13:12 | disposition home or self-care (01) | LOC: WOUND 13:11 | PROVIDERS: PCP Family Medicine; Visit Provider Surgery | DX: T81.31XA Disruption of external operation (surgical) wound, not elsewhere classified, initial encounter (principal); Y83.8 Other surgical procedures as the cause of abnormal reaction of the patient, or of later complication, without mention of misadventure at the time of the procedure; I65.8 Occlusion and stenosis of other precerebral arteries; I10 Essential (primary) hypertension | CPT/HCPCS: 11042; 87070; 87077; 87176; 87186; 87205; G0463 ==

== ENCOUNTER 2021-05-20 06:47 | Day surgery (SDC) | payer OTHER, BC, SELFPAY ==
[2021-05-19 16:22] VITALS: BMI 33.9
[2021-05-20] VITALS (18 sets, daily range): BP systolic 128–153; BP diastolic 73–91; PULSE 76–98; RESP 14–18; TEMP 36.4–37.1; O2SAT 93–99
[2021-05-20] MEDS: sodium chloride 0.9% 1,000 ML 30 ML (07:43)
--- NOTE | 2021-05-20 07:54 | P.ANESASSM_ITS ---
Pre-Anesthetic Assessment Pre-Anesthetic Assessment: Height/Weight: Height 1.68 m Weight 95.254 kg Temp Pulse Resp BP Pulse Ox 97.6 F 76 16 145/88 97 05/20/21 07:13 05/20/21 07:13 05/20/21 07:13 05/20/21 07:13 05/20/21 07:13 Preop Diagnosis: lumbar stenosis and L4/5 Spondylolisthesis Proposed Procedure: Operation Date: 05/20/21 08:00 Proposed Procedures p Incision and Drainage back(Not Applicable) - Freddy Wilder DO Familial anesthetic complications: None Was Beta Sean taken within 24 hours: N/A Was Clonidine taken within 24 hours: N/A Last intake: Intake > 8 hrs Last Liquid Date 05/20/21 Last Liquid Time 05:00 Last Solid Date 05/19/21 Last Solid Time 19:00 Social: Social History: No alcohol and No tobacco Exam: Pre-Anes Outpt Exam: alert, oriented x 3, clear to auscultation bilaterally and regular rate & rhythm Airway: Cervical ROM: WNL MP: 3 Dentition: Full and Other (missing) CV/HEM: CV/HEM: HTN Metabolic: Metabolic: DM (Pre- DM) and Morbid obesity Musc/skel: Musc/skel: Fibromyalgia Neuropsych: Neuropsych: Anxiety PFSH Anesthesia PFSH: Medical History Allergic rhinitis Depression ZORAIDA (generalized anxiety disorder) History of prediabetes Hypertension Intervertebral disc disorder with radiculopathy of lumbosacral region Labial cyst Lumbar stenosis with neurogenic claudication Mixed hyperlipidemia Obesity Spondylolisthesis of lumbar region Surgical History (Updated 05/19/21 @ 16:19 by Charleen Holloway) History of knee surgery (~1973) left knee for repair History of tonsillectomy Family History Father Bleeding ulcer Heart disease Sister Bleeding ulcer Grandfather Heart disease Social History Alcohol intake: never 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
--- NOTE | 2021-05-20 08:16 | W.PM.OPSUD ---
Surgery/Procedure H&P Update DATE OF PROCEDURE: May 20, 2021 DATE H&P PERFORMED: 05/18/21 H&P UPDATE INFORMATION: I have reviewed H&P completed within last 30 days, I have examined patient prior to procedure and No changes to prior documentation PREOP DIAGNOSIS: lumbar stenosis and L4/5 Spondylolisthesis PLANNED PROCEDURE: Operation Date: 05/20/21 08:00 Proposed Procedures p Incision and Drainage back(Not Applicable) - Freddy Wilder DO
[2021-05-20] MEDS: vancomycin 1,000 MG SDV 1000 MG XX (08:27)
--- NOTE | 2021-05-20 09:04 | P.PCN_ITS ---
PACU note PACU note: VSS, Good respiratory effort, report to LEAD FRONT END DEVELOPER Post-Anesthesia Exam: awake
--- NOTE | 2021-05-20 09:04 | PM.PACU ---
PACU note PACU note: VSS, Good respiratory effort, report to SENIOR HEALTH CONSULTANT Post-Anesthesia Exam: awake
[2021-05-20] MEDS: fentaNYL 50 mcg/mL INJ 2mL IVP ×2 (09:07→09:16)
--- NOTE | 2021-05-20 09:07 | PM.OP ---
Operative Report Date of procedure: May 20, 2021 Pre-op Diagnosis: wound dehiscence Post-op diagnosis: same Procedure Done: 1. Irrigation and debridement of seroma 2. Complex closure of wound Surgeon: Freddy Wilder Anesthesia: General Estimated blood loss (mL): 5 Condition: stable Disposition: PACU Procedure: 1. Irrigation and debridement of seroma 2. Complex closure of wound Patient was brought to the operative suite. Patient was flipped into the prone position after undergoing anesthesia. Patient was prepped and draped in normal sterile fashion. The wound was opened. There is found to be seroma that was underneath the fatty tissue in between the fatty tissue in the thoracolumbar fascia. Did not penetrate through the thoracolumbar fascia. Thoracolumbar fascia was found to be intact. The wound was debrided with scalpel. To get to bleeding tissue. There was not any necrotic tissue. Cultures were taken from this area. And then the area was irrigated with 3 L of saline. Once this was completed then attention was brought to closing the wound. Prior to closing the wound the tissues that were divided were muscle and fascia. Vancomycin powder was placed in the wound. And the wound was closed in a layered fashion using 0- strata fix and 2-0 strata fix. And then the skin was closed with 3-0 nylon. A Silverlon dressing was placed. And patient was transferred to the PACU in stable condition.
[2021-05-20] MEDS: HYDROmorphone 1 mg/mL INJ 1 mL 0.5 MG IVP ×2 (09:23→09:38)
--- NOTE | 2021-05-20 10:50 | ANE.PACU2 ---
Inpatient post-anesthesia follow up: Airway intact: Yes Vital signs: Temperature 98.2 F Pulse Rate 91 Respiratory Rate 18 Blood Pressure 134/77 Pulse Oximetry 93 Oxygen Delivery Me thod Room Air Oxygen Flow Rate Fraction of Inspir ed Oxygen Hydration adequate: Yes Nausea and vomiting: No Pain level: 3 Mental status: Baseline
[2021-05-20] MEDS: HYDROcodone-acetaminophen 5-325 mg Tablet 1 TAB PO (11:01)
== END 2021-05-20 11:15 | disposition home or self-care (01) ==
PROVIDERS: PCP Family Medicine; Visit Provider Orthopaedic Surgery
PROC: (CPT 13160; principal; 2021-05-20 08:00)
DX: T81.30XA Disruption of wound, unspecified, initial encounter (principal); L76.34 Postprocedural seroma of skin and subcutaneous tissue following other procedure; I10 Essential (primary) hypertension; E11.9 Type 2 diabetes mellitus without complications; E66.01 Morbid (severe) obesity due to excess calories; Z68.33 Body mass index [BMI] 33.0-33.9, adult; M79.7 Fibromyalgia; F41.9 Anxiety disorder, unspecified; E78.2 Mixed hyperlipidemia
CPT/HCPCS: 13160; 87070; 87075; 87077; 87186; 87205; J0330; J0690; J1100; J1170; J2405; J2704; J3010; J3370; J3490; J7030

== ENCOUNTER → 2021-05-26 07:55 | Day surgery (SDC) | payer OTHER, BC, SELFPAY ==
--- NOTE | 2021-05-26 08:33 | XR_ITS ---
WS: [id number] XR chest 1V portable [id number] REASON FOR EXAM: PICC LINE PLACEMENT FINDINGS: The initial chest examination demonstrates a right arm PICC line with the tip well into the right atr ium. Follow-up chest examination after 3.5 cm pullback demonstrates the tip of the PICC line to be at the cavoatrial junction. No other significant findings. XR/XR chest 1V portable [id number] IMPRESSION: Final PICC line placement position at the cavoatrial junction, safe and ready f or use.
--- NOTE | 2021-05-26 08:52 | SUR.PREOP ---
Time out for PICC line insertion.
--- NOTE | 2021-05-26 09:30 | SUR.PHASEII ---
POST OP ANTIBIOTICS Patient taken via wheelchair to OPS for 1st dose of antibiotic therapy. Report to Jessica Barillas RN.
[2021-05-26] MEDS: cefepime 2,000 MG in sodium chloride 0.9% (plus) 50 ML 100 MG IV (09:43)
== END ==
PROVIDERS: PCP Family Medicine; Visit Provider Student in an Organized Health Care Education/Training Program
DX: Z95.828 Presence of other vascular implants and grafts (principal)
CPT/HCPCS: 36569; 71045; 96365; J0692

== ENCOUNTER 2022-04-25 14:33 | Emergency (ER) | payer OTHER, BC, SELFPAY ==
[2022-04-25 15:12] VITALS: BP 117/72; PULSE 83; RESP 16; TEMP 37.1; O2SAT 93; BMI 34.3
--- NOTE | 2022-04-25 15:33 | CTR_ITS ---
PROCEDURE INFORMATION: Exam: CT Head Without Contrast Exam date and time: 04/25/2022 4:08 PM Age: 61 years old Clinical indication: Injury or trauma; Blunt trauma (contusions or hematomas); Without loss of consciousness; Injury details: Fall x today. Hit right side of head on hard surface; Additional info: Trauma/fall TECHNIQUE: Imaging protocol: Computed tomography of the head without contrast. Radiation optimization: All CT scans at this facility use at least one of these dose optimization techniques: automated exposure control; mA and/or kV adjustment per patient size (includes targeted exams where dose is matched to clinical indication); or iterative reconstruction. COMPARISON: MR cervical spin wo con* [id number] 01/08/2020 4:26 PM RADIATION DOSE METRICS: Total DLP (mGy-cm): 906.45 FINDINGS: Brain: Normal. No hemorrhage. Unremarkable white matter. No mass effect. Cerebral ventricles: No ventriculomegaly. Paranasal sinuses: Visualized sinuses are unremarkable. No fluid levels. Mastoid air cells: Visualized mastoid air cells are well aerated. Bones/joints: Unremarkable. No acute fracture. Soft tissues: Unremarkable. CT/CT head wo con* [id number] IMPRESSION: No acute intracranial abnormality.
--- NOTE | 2022-04-25 15:33 | CTR_ITS ---
PROCEDURE INFORMATION: Exam: CT Cervical Spine Without Contrast Exam date and time: 04/25/2022 4:11 PM Age: 61 years old Clinical indication: Injury or trauma; Fall; Blunt trauma; Additional info: Trauma/fall TECHNIQUE: Imaging protocol: Computed tomography of the cervical spine without contrast. Radiation optimization: All CT scans at this facility use at least one of these dose optimization techniques: automated exposure control; mA and/or kV adjustment per patient size (includes targeted exams where dose is matched to clinical indication); or iterative reconstruction. COMPARISON: MR cervical spin wo con* [id number] 01/08/2020 4:26 PM RADIATION DOSE METRICS: Total DLP (mGy-cm): 693.59 FINDINGS: Bones/joints: No acute fracture. Normal alignment. Discs/Spinal canal/Neural foramina: No significant disc protrusion. No severe spinal canal stenosis. No significant neural foraminal narrowing. Lungs: Lung apices are normal. Soft tissues: Unremarkable. CT/CT cervical spin wo con* [id number] IMPRESSION: No acute findings.
--- NOTE | 2022-04-25 15:55 | ED_ITS ---
HPI - Fall General: Chief Complaint: Fall Stated Complaint: headache Time Seen by Provider: 04/25/22 15:51 History of Present Illness: 61-year-old female presents with a headache and neck pain after mechanical fall. States that Saturday she tripped over her dog and hit her head. She is not on blood thinners. Denies loss of consciousness. Denies any other focal pain or injury. Denies any focal weakness numbness or tingling. Does report she has felt a little off balance and lightheaded since then but has not had any syncopal episodes. Review of Systems Narrative: - CONSTITUTIONAL: Denies weight loss, fever and chills. - HEENT: Denies changes in vision and hearing. - RESPIRATORY: Denies SOB and cough. - CV: Denies palpitations and CP. - GI: Denies abdominal pain, nausea, vomiting and diarrhea. - : Denies dysuria and urinary frequency. - MSK: Denies myalgia and joint pain. - SKIN: Denies rash and pruritus. - NEUROLOGICAL: As above - PSYCHIATRIC: Denies suicidal ideation [facility] ED PFS: Medical History (Updated 04/25/22 @ 11:03 by TOMEKA Briscoe) Allergic rhinitis Altered mental status, unspecified Closed head injury Depression ZORAIDA (generalized anxiety disorder) History of prediabetes Hypertension Intervertebral disc disorder with radiculopathy of lumbosacral region Labial cyst Long-term current use of opiate analgesic Lumbar stenosis with neurogenic claudication Mixed hyperlipidemia Obesity Pain management contract signed Spondylolisthesis of lumbar region Surgical History History of incision and drainage History of knee surgery (~1973) left knee for repair History of lumbar fusion History of tonsillectomy Family History Father Bleeding ulcer Heart disease Sister Bleeding ulcer Grandfather Heart disease Social History Smoking and tobacco status: former smoker Alcohol intake: never 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 No acute distress. Well-nourished. - EYES: EOMI. Anicteric. - HENT: no C-spine tenderness. Moist mucous membranes. No scleral icterus. No cervical lymphadenopathy. No hemotympanum, no bony ligamentous laxity. No nasal septal hematoma. - LUNGS: Clear to auscultation bilaterally. No accessory muscle use. Equal lung sounds bilaterally. No respiratory distress. - CARDIOVASCULAR: Regular rate and rhythm. No murmur. No JVD. - ABDOMEN: Soft, non-tender and non-distended. Negative CVA tenderness bilaterally, no rebound or guarding, negative Gordon sign. No palpable masses. - EXTREMITIES: No edema. Non-tender. - SKIN: No rashes or lesions. Warm. - NEUROLOGIC: No meningismus or focal neurological deficits. CN II-XII grossly intact. - PSYCHIATRIC: Cooperative. Appropriate mood and affect. Course Vital Signs: Vital signs: Vital Signs Temperature 98.8 F 04/25/22 15:12 Pulse Rate 83 04/25/22 15:12 Respiratory Rate 16 04/25/22 15:12 Blood Pressure 117/72 04/25/22 15:12 Pulse Oximetry 93 04/25/22 15:12 MDM - Fall Medical Decision Making 61-year-old presents with headache and neck pain after mechanical fall several days ago. She complains of some lightheadedness and feeling unsteady on her feet since the fall however has a nonfocal neurologic exam. CT scan does not reveal any intracranial hemorrhage fracture or dislocation. Patient is able to ambulate without difficulty. Suspect mild concussion. At this time I believe patient would be safe for discharge and outpatient follow-up. Return precautions provided. Plan was reviewed with the patient who expressed understanding. Questions answered. Patient will follow up with PCP. Patient discharged in stable condition. Lab Data Radiology Impressions Cervical Spine CT 04/25/22 15:33 IMPRESSION: No acute findings. Head CT 04/25/22 15:33 IMPRESSION: No acute intracranial abnormality. Discharge Plan Discharge Condition: Stable Prescriptions: No Action fexofenadine [Mariel Allergy] 180 mg tablet 180 mg PO DAILY PRN (Reason: Allergy Symptoms) 0RF hydrochlorothiazide 25 mg tablet 25 mg PO QAM 90 Days Qty: 90 3RF melatonin 10 mg Tablet 10 - 20 mg PO BEDTIME 0RF cyclobenzaprine 10 mg tablet 10 mg PO BEDTIME PRN (Reason: muscle spasm) 0RF lisinopril 40 mg tablet 40 mg PO QAM 0RF duloxetine 30 mg capsule,delayed release(DR/EC) 30 mg PO BEDTIME 0RF Referrals: Arlen Al MD [Primary Care Provider] - Coding Level of Care Code ED Respiratory Therapy Director for [facility] Henriquez
--- NOTE | 2022-04-25 16:07 | PC.NURSE ---
Patient in ct at this time.
[2022-04-25] MEDS: acetaminophen 325 mg Tablet 650 MG PO (16:26)
[2022-04-25 17:15] VITALS: BP 134/69; PULSE 88; O2SAT 94
[2022-04-25 17:18] VITALS: BP 134/69; PULSE 88; O2SAT 94
== END 2022-04-25 17:16 | disposition home or self-care (01) ==
PROVIDERS: Emergency Provider Emergency Medicine; PCP Family Medicine
DX: R51.9 Headache, unspecified (principal); I10 Essential (primary) hypertension; E78.2 Mixed hyperlipidemia; Z87.891 Personal history of nicotine dependence
CPT/HCPCS: 70450; 72125; 99283

== ENCOUNTER → 2022-07-31 08:53 | Outpatient (BNVA) | payer OTHER, BC, SELFPAY | PROVIDERS: PCP Family Medicine; Visit Provider Family Medicine | DX: Z87.898 Personal history of other specified conditions (principal); E78.2 Mixed hyperlipidemia; I10 Essential (primary) hypertension | CPT/HCPCS: 80053; 80061; 83036 ==

== ENCOUNTER → 2023-05-10 08:55 | Outpatient (BNVA) | payer BC, OTHER, SELFPAY | PROVIDERS: PCP Family Medicine; Visit Provider Family Medicine | DX: I10 Essential (primary) hypertension (principal); Z87.898 Personal history of other specified conditions | CPT/HCPCS: 80053; 83036 ==

== ENCOUNTER → 2023-06-25 08:30 | Outpatient (BNVA) | payer BC, OTHER, SELFPAY | PROVIDERS: PCP Family Medicine; Visit Provider Family Medicine | DX: E87.6 Hypokalemia (principal) | CPT/HCPCS: 80048 ==

== ENCOUNTER → 2023-08-19 16:22 | Outpatient (BNVA) | payer OTHER, BC, SELFPAY | PROVIDERS: PCP Family Medicine; Visit Provider Family Medicine | DX: Z86.73 Personal history of transient ischemic attack (TIA), and cerebral infarction without residual deficits (principal); R26.89 Other abnormalities of gait and mobility; R29.6 Repeated falls; R30.0 Dysuria; R31.9 Hematuria, unspecified | CPT/HCPCS: 81000; 87077; 87086; 87184 ==

== ENCOUNTER → 2023-10-16 10:42 | Outpatient (BNVA) | payer OTHER, BC, SELFPAY | PROVIDERS: PCP Family Medicine; Visit Provider Psychiatry & Neurology Neurology | DX: R26.89 Other abnormalities of gait and mobility (principal); M54.2 Cervicalgia | CPT/HCPCS: 36415; 82306; 82607; 82746; 83921; 85025; 86592; 86617; 86780 ==

== ENCOUNTER 2023-10-23 10:30 | Outpatient (CLI) | payer OTHER, BC, SELFPAY ==
--- NOTE | 2023-10-23 10:45 | USCV_ITS ---
Grace Portillo Age: 63 Gender: F : 1960 Exam Date: 10/23/2023 10:51 Ordering Phys: Baudilio Birch MD Technologist: CT Exam Location: [facility]_ Indication: abn gait Risk Factors: Previous Vascular Surgery: Right Brachial BP: / Left Brachial BP: / Right Left Velocity (cm/s) Spectral Plaque Velocity (cm/s) Spectral Plaque Syst/Diast Broadening Syst/Diast Broadening 92.60/ 19.80 Prox CCA 88.60 / 24.20 116.90/26.50 Mid CCA 96.70 / 26.00 91.50/ 24.30 Distal CCA 95.80 / 26.00 99.40/ 29.50 Prox ICA 83.30 / 21.50 93.10/ 29.50 Mid ICA 70.70 / 25.10 81.50/ 28.70 Distal ICA 79.00 / 25.20 94.00 ECA 92.20 0.85 ICA/CCA 0.86 Antegrade Vertebral Antegrade 33.10/ 14.30 cm/s 54.60/ 16.80 cm/s Tri Subclavian Tri 95.80 107.2 0 CONCLUSIONS Right ICA stenosis <50%. Mild atheromatous plaque right carotid bulb/ICA. Left ICA stenosis <50%. Mild atheromatous plaque left carotid bulb/ICA. Normal antegrade Doppler flow noted in the right vertebral artery. Normal antegrade Doppler flow noted in the left vertebral artery. Manuel Matute MD (Electronically Signed) Final Date: 23 October 2023 12:15 S
== END 2023-10-23 10:31 | disposition home or self-care (01) ==
PROVIDERS: PCP Family Medicine; Visit Provider Psychiatry & Neurology Neurology
DX: R26.89 Other abnormalities of gait and mobility (principal); M54.2 Cervicalgia; I65.23 Occlusion and stenosis of bilateral carotid arteries
CPT/HCPCS: 93880

== ENCOUNTER 2023-12-05 12:09 | Emergency (ER) | payer BC, SELFPAY ==
[2023-12-05 12:18] VITALS: BP 121/76; PULSE 85; RESP 16; TEMP 36.4; O2SAT 97; BMI 34.7
[2023-12-05 13:05] LABS: Basophils # 0.1 10^3/uL (0.0-0.1); Basophils % 0.5 %; Eosinophils % 0.1 %; Hematocrit 43.4 % (36-47); Lymphocytes # 1.2 10^3/uL (0.8-4.8); Mean Corpuscular HGB Conc 33.6 g/dL (30-55); Mean Corpuscular Hemoglobin 31.6 pg (27-33); Mean Corpuscular Volume 93.9 fl (85-98); Mean Platelet Volume 9.3 fL (7.4-10.4); Monocytes # 0.1 10^3/uL (0.2-0.9); Neutrophils # 8.47 10^3/uL (1.8-7.7); Neutrophils % 86.2 %; Nucleated Red Blood Cells % 0 %; Platelet Count 287 10^3/cmm (157-399); Red Blood Count 4.62 10^6/uL (3.85-5.65); Red Cell Distribution Width 12.8 % (12.1-15.1); White Blood Count 9.83 10^3/uL (3.29-11.43)
--- NOTE | 2023-12-05 13:09 | CT_ITS ---
WS: [id number] CT HEAD TECHNIQUE: Noncontrast CT of the head obtained from the skullbase to the vertex. CLINICAL INFORMATION: vertigo COMPARISON: CT 04/25/2022 DLP: 1133.[address] scans at [facility] use at least one of these dose optimization techniques: automated e xposure control; mA and/or kV adjustment per patient size (includes targeted exams where dose is matc hed to clinical indication); or iterative reconstruction. FINDINGS: No evidence of intracranial hemorrhage or mass effect. Ventricular system and basal cisterns are suero nt. Mild small vessel changes with mild parenchymal volume loss. No extra-axial fluid collections. No evidence of mass or mass effect. Normal queen-white differentiation. Paranasal sinuses and mastoid air cells are well aerated. .Normal visualized soft tissues. IMPRESSION: 1. No evidence of intracranial hemorrhage or mass effect. 2. No acute intracranial findings.
[2023-12-05 13:20] LABS: Alanine Aminotransferase 20 U/L (0-33); Albumin Level 4.1 g/dL (3.5-5.2); Alkaline Phosphatase 88 U/L (35-105); Anion Gap 18.2 (5-19); Aspartate Amino Transferase 17 U/L (0-32); Blood Urea Nitrogen 22 mg/dL (8-23); Calcium 9.5 mg/dL (8.5-10.5); Carbon Dioxide 27 mmol/L (22-29); Chloride 99 mmol/L (98-107); Globulin 2.8 g/dL (1.3-4.6); Glomerular Filtration Rate 72.7 mL/min (90-130); Glucose 154 mg/dL (65-115); Lipase 16 U/L (13-60); Osmolality Calculated 296 mOsm/kg (285-295); Potassium 4.2 mmol/L (3.5-5.1); Sodium 140 mmol/L (136-145); Total Bilirubin 0.3 mg/dL (0.15-1.2); Total Protein 6.9 g/dL (6.6-8.7)
[2023-12-05] MEDS: diazePAM 5 mg Tablet PO (13:26)
[2023-12-05 13:28] VITALS: BP 117/73; PULSE 77; RESP 20; O2SAT 96
--- NOTE | 2023-12-05 13:48 | ED_ITS ---
HPI - Dizziness 2 General: Chief Complaint: Dizziness Stated Complaint: n,v, headaches Time Seen by Provider: 12/05/23 12:54 Source: patient Mode of arrival: ambulatory Limitations: no limitations History of Present Illness: HPI Narrative: 63-year-old female with history of verti go she states she has had vertigo for years she does have a neurologist also has cerebral ataxia she states she has had worsening vertigo nightly since November 11 states she has been taking Antivert along with Dramamine and it is worsening. States this morning she had severe vertigo she states it is fine if she lays still but if she tries to move she gets very dizzy denies any headache denies any fevers Associated symptoms: Denies chest pain, chills, headache(s), nausea or vomiting Review of Systems 2 Const: Denies: fever(s), chills, body aches or change in appetite ENMT: Denies: throat pain or dental pain Card: Denies: chest pain Resp: Denies: dyspnea GI: Denies: abdominal pain, nausea, vomiting or diarrhea Musc: Denies: neck pain or back pain Skin/Breast: Denies: rash Neuro: Reports: vertigo; Denies: headache(s) PFSH ED 2 PFSH: Medical History Altered mental status, unspecified Closed head injury Long-term current use of opiate analgesic Pain management contract signed Mixed hyperlipidemia History of prediabetes Allergic rhinitis Obesity Labial cyst Depression ZORAIDA (generalized anxiety disorder) Hypertension Lisinopril discontinued due to cough Spondylolisthesis of lumbar region Lumbar stenosis with neurogenic claudication Intervertebral disc disorder with radiculopathy of lumbosacral region Surgical History History of lumbar fusion History of incision and drainage History of tonsillectomy History of knee surgery (~1973) left knee for repair Family History Father Bleeding ulcer Heart disease Sister Bleeding ulcer Grandfather Heart disease Social History Smoking and tobacco/nicotine status: former use of tobacco/nicotine Alcohol intake: never Substance/Drug Use: never 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 Female Reproductive History: Spontaneous abortions: No Physical Exam 2 Const: COMMON NORMALS: no acute distress, patient oriented x3 and healthy appearing HENMT: COMMON NORMALS: normocephalic and atraumatic HEAD & SCALP: n ormocephalic and atraumatic Neck/C-Spine: COMMON NORMALS: full ROM and supple Chest: COMMONS NORMALS: normal inspection of the chest Resp: COMMON NORMALS: normal respiratory effort Cardio: COMMON NORMALS: regular rate, regular rhythm and No murmurs present (Cardio) RATE: regular rate RHYTHM: regular rhythm Extremity: COMMON NORMALS: normal to inspection and full ROM Neuro: COMMON NORMALS: patient oriented x3, moves all extremities and no focal motor deficits Psych: COMMON NORMALS: mental status grossly normal, Normal thought process present and cooperative THOUGHT PROCESS: Normal thought process present Skin: COMMON NORMALS: no rashes or lesions noted and no wounds GENERAL SKIN EXAM: no rashes or lesions noted Course 2 Vital Signs: Vital signs: Vital Signs Temperature 97.5 F L 12/05/23 12:18 Pulse Rate 77 12/05/23 13:28 Respiratory Rate 20 H 12/05/23 13:28 Blood Pressure 117/73 12/05/23 13:28 Pulse Oximetry 96 12/05/23 13:28 MDM - Dizziness Medical Decision Making Patient presents here with vertigo she has a long history of vertigo its likely peripheral vertigo head CT is normal she feels much improved after Valium she is able ambulate we will prescribe her some Valium for home informed her to try Antivert first of is not working she is to use Valium I did instruct her she cannot work or drive if she takes the Valium she understands agrees to plan. She is to follow-up with her neurologist Dr. Birch. Medical Records I reviewed the patient's medical records. Lab Data I reviewed the patient's lab results. 12/05/23 12:51 12/05/23 12:51 Laboratory Results WBC 9.83 10^3/uL (3.29-11.43) 12/05/23 12:51 RBC 4.62 10^6/uL (3.85-5.65) 12/05/23 12:51 Hgb 14.60 g/dL (11.27-16.99) 12/05/23 12:51 Hct 43.4 % (36-47) 12/05/23 12:51 MCV 93.9 fl (85-98) 12/05/23 12:51 MCH 31.6 pg (27-33) 12/05/23 12:51 MCHC 33.6 g/dL (30-55) 12/05/23 12:51 RDW 12.8 % (12.1-15.1) 12/05/23 12:51 Plt Count 287 10^3/cmm (157-399) 12/05/23 12:51 MPV 9.3 fL (7.4-10.4) 12/05/23 12:51 Neut % (Auto) 86.2 % 12/05/23 12:51 Lymph % (Auto) 12.0 % 12/05/23 12:51 Ripley % (Auto) 1.0 % 12/05/23 12:51 Eos % (Auto) 0.1 % 12/05/23 12:51 Baso % (Auto) 0.5 % 12/05/23 12:51 Neut # (Auto) 8.47 10^3/uL (1.8-7.7) H 12/05/23 12:51 Lymph # (Auto) 1.2 10^3/uL (0.8-4.8) 12/05/23 12:51 Ripley # (Auto) 0.1 10^3/uL (0.2-0.9) L 12/05/23 12:51 Eos # (Auto) 0.0 10^3/uL (0.0-0.8) 12/05/23 12:51 Baso # (Auto) 0.1 10^3/uL (0.0-0.1) 12/05/23 12:51 Nucleated RBC % (auto) 0 % 12/05/23 12:51 Nucleated RBCs # 0.0 /100WBC 12/05/23 12:51 Sodium 140 mmol/L (136-145) 12/05/23 12:51 Potassium 4.2 mmol/L (3.5-5.1) 12/05/23 12:51 Chloride 99 mmol/L (98-107) 12/05/23 12:51 Carbon Dioxide 27 mmol/L (22-29) 12/05/23 12:51 Anion Gap 18.2 (5-19) 12/05/23 12:51 BUN 22 mg/dL (8-23) 12/05/23 12:51 Creatinine 0.8 mg/dL (0.5-0.9) 12/05/23 12:51 GFR Calculation 72.7 mL/min (90-130) L 12/05/23 12:51 Glucose 154 mg/dL (65-115) H 12/05/23 12:51 Calculated Osmolality 296 mOsm/kg (285-295) H 12/05/23 12:51 Calcium 9.5 mg/dL (8.5-10.5) 12/05/23 12:51 Total Bilirubin 0.3 mg/dL (0.15-1.2) 12/05/23 12:51 AST 17 U/L (0-32) 12/05/23 12:51 ALT 20 U/L (0-33) 12/05/23 12:51 Alkaline Phosphatase 88 U/L (35-105) 12/05/23 12:51 Total Protein 6.9 g/dL (6.6-8.7) 12/05/23 12:51 Albumin 4.1 g/dL (3.5-5.2) 12/05/23 12:51 Globulin 2.8 g/dL (1.3-4.6) 12/05/23 12:51 Lipase 16 U/L (13-60) 12/05/23 12:51 All radiology interpretation(s) finalized by discharge Discharge Plan Discharge Patient Disposition: Home Clinical Impression: Vertigo Condition: Stable Prescriptions: New diazepam [Valium] 5 mg tablet 5 mg PO BID PRN (Reason: vertigo) Qty: 14 0RF No Action fexofenadine [Mariel Allergy] 180 mg tablet 180 mg PO DAILY PRN (Reason: Allergy Symptoms) cyclobenzaprine 10 mg tablet 10 mg PO BEDTIME PRN (Reason: muscle spasm) 30 Days Qty: 90 11RF hydrochlorothiazide 25 mg tablet 25 mg PO QAM 90 Days Qty: 90 3RF pregabalin 50 mg capsule 50 mg PO BID 30 Days Qty: 60 3RF metoprolol succinate 25 mg tablet extended release 24 hr 25 mg PO DAILY 90 Days Qty: 90 2RF losartan 100 mg tablet 100 mg PO DAILY 90 Days Qty: 90 2RF tramadol 50 mg tablet 50 mg PO BID PRN (Reason: chronic pain) 7 Days Qty: 14 0RF ondansetron 4 mg tablet,disintegrating 4 mg PO Q8H Qty: 10 0RF prednisone 20 mg tablet 40 mg PO daily Qty: 10 0RF meclizine 25 mg tablet 25 mg PO TID PRN (Reason: motion sickness) Qty: 30 0RF cholecalciferol (vitamin D3) 1,250 mcg (50,000 unit) capsule 50,000 unit PO .weekly Qty: 12 5RF Rx Instructions: take one capsule weekly melatonin 10 mg Tablet 10 - 20 mg PO BEDTIME Discharge Orders: Discharge ED (Routine); Ordered 12/05/23 Ordered By: Rozina Andrews Referrals: Arlen Al MD [Primary Care Provider] - 1-3 days Discharge Diet: Advance as tolerated Discharge Activity: Resume usual activity Patient Instructions: Vertigo (ED) Coding Level of Care Code ED Care Assistant for Herson Henriquez
[2023-12-05 14:05] VITALS: BP 119/77; PULSE 78; RESP 16; O2SAT 91
== END 2023-12-05 14:16 | disposition home or self-care (01) ==
PROVIDERS: Emergency Provider Emergency Medicine; PCP Family Medicine
DX: R42 Dizziness and giddiness (principal); Z87.891 Personal history of nicotine dependence; E78.2 Mixed hyperlipidemia; I10 Essential (primary) hypertension
CPT/HCPCS: 36415; 70450; 80053; 83690; 85025; 99284

== ENCOUNTER 2023-12-25 07:52 | Outpatient (CLI) | payer BC, OTHER, SELFPAY ==
--- NOTE | 2023-12-25 08:00 | MR_ITS ---
WS: [id number] MRI HEAD WITH CONTRAST TECHNIQUE: Sagittal T1, T2 axial, T2 axial FLAIR, axial susceptibility weighted imaging, axial diffus ion weighted images, and coronal T2 images were obtained. Pre and post-T1 axial and post T1 coronal i mages. ADC and FSPGR images. CLINICAL INFORMATION: R26.89 - Other abnormalities of gait and mobility COMPARISON: CT head 12/05/2023 FINDINGS: No evidence of restricted diffusion to suggest acute ischemia. Ventricular system and basilar cistern s are patent. No suspicious intracranial signal abnormalities. Moderate parenchymal volume loss. Norm al posterior fossa. Normal vascular flow voids at the skull base. No extra-axial fluid collections. N o mass or mass effect. A few prominent perivascular spaces in the basal ganglia. Paranasal sinuses an d mastoid air cells are well aerated. No hemosiderin on the susceptibly weighted images. Normal optic chiasm and pituitary infundibulum. M ild symmetric atrophy temporal lobes and hippocampal formations. No abnormal intracranial enhancement . Normal optic chiasm and pituitary infundibulum. Normal sella. Normal dural venous sinuses. IMPRESSION: 1. No evidence of restricted diffusion to suggest acute ischemia. 2. No suspicious intracranial signal normalities. Moderate parenchymal volume loss. 3. Mild symmetric atrophy temporal lobes and hippocampal formations. 4. No hemosiderin on the susceptibility weighted images. 5. No other suspicious findings.
--- NOTE | 2023-12-25 08:45 | MR_ITS ---
WS: [id number] MR CERVICAL SPINE WO/W COMPARISON: 04/25/2022 CT HISTORY: R26.89 - Other abnormalities of gait and mobility TECHNIQUE: Sagittal T1, T2 and T2 inversion recovery; axial T2, T2 gradient and fiesta. Post gadolini um imaging with fat saturation technique. FINDINGS:Straightening of the normal cervical lordosis. No high grade central canal narrowing. Cord s ignal is normal. Mild disc bulging worse at C4-C6 worse at C5-C6. C2-3: Mild facet arthropathy. Mild LEFT and no significant RIGHT foraminal narrowing. C3-4: Slight anterolisthesis. Moderate facet arthropathy. Mild LEFT and no significant RIGHT foramina l narrowing. C4-5: Small disc osteophyte protrusion. Moderate facet arthropathy. Mild LEFT and no RIGHT foraminal narrowing. C5-6: Disc osteophyte protrusion with slight effacement of the ventral thecal sac. Moderate facet art hropathy. Spinal canal and foramen are patent. C6-7: Disc osteophyte complex with endplate ridging. Spinal canal and foramen are patent. C7-T1: Mild LEFT greater than RIGHT bony foraminal narrowing. Moderate facet arthropathy. Spinal dariela l is patent. Shallow disc protrusions in the upper thoracic spine at T3-T4 and T4-T5. No abnormal gadolinium enhancement. IMPRESSION: 1. Straightening of the normal cervical lordosis. No high-grade central canal narrowing. Cord signa l is normal. 2. No abnormal gadolinium enhancement. 3. Small central protrusions C4-C6 worse at C5-C6 with slight effacement of the ventral thecal sac. Slight contact of the cervical cord at C5-6. Spinal canal remains patent. 4. Mild multilevel foraminal narrowing described above. 5. Moderate facet arthropathy C3-C4 C4-C5 and C5-C6.
[2023-12-25] MEDS: gadobenate dimeglumine 20 mL vial IV (09:23)
== END 2023-12-25 07:53 | disposition home or self-care (01) ==
LOC: RAD 07:53
PROVIDERS: PCP Family Medicine; Visit Provider Psychiatry & Neurology Neurology
DX: M50.222 Other cervical disc displacement at C5-C6 level (principal); M47.892 Other spondylosis, cervical region; R29.6 Repeated falls
CPT/HCPCS: 70553; 72156; A9577

== ENCOUNTER → 2024-02-27 08:53 | Outpatient (BNVA) | payer OTHER, BC, SELFPAY | PROVIDERS: PCP Family Medicine; Visit Provider Family Medicine | DX: I10 Essential (primary) hypertension (principal); E55.9 Vitamin D deficiency, unspecified; E78.2 Mixed hyperlipidemia; Z87.898 Personal history of other specified conditions | CPT/HCPCS: 80048; 80061; 82652; 83036; 85007; 85027 ==

== ENCOUNTER → 2025-10-25 10:07 | Outpatient (BNVA) | payer BC, SELFPAY | PROVIDERS: PCP Family Medicine; Visit Provider Family Medicine | DX: I10 Essential (primary) hypertension (principal); D50.9 Iron deficiency anemia, unspecified; D64.9 Anemia, unspecified | CPT/HCPCS: 80048; 83735; 85025 ==